=== PATIENT | male | born 1985 | race Two or more races ===

== ENCOUNTER 2024-02-23 17:03 | Emergency (ER) | payer SELFPAY ==
[~2024-02-23] VITALS: Ht 182.9 cm; Wt 144.7 kg
[2024-02-23 21:26] VITALS: BP 138/82; PULSE 106; RESP 16; TEMP 98.5; O2SAT 94
[2024-02-23] MEDS ORDERED: PRED20TA2 PO (21:59)
[2024-02-23] MEDS ORDERED: AMOX875T4 PO (21:59)
[2024-02-23] MEDS ORDERED: IBUP-1456 PO (21:59)
[2024-02-23] MEDS: cefTRIAXone SOD 1,000 MG VL IM ONE (22:01)
[2024-02-23] MEDS: KETOROLAC TROMETH 60MG/2ML VIAL IM ONE (22:01)
[2024-02-23] MEDS: TETANUS-DIPTH-ACEL PERTUSSIS 0.5ML SYR Tdap IM ONE (22:17)
== END 2024-02-23 21:59 | disposition home or self-care (01) ==
LOC: ER 17:03
DX: S00.461A Insect bite (nonvenomous) of right ear, initial encounter (principal); H66.91 Otitis media, unspecified, right ear; F17.210 Nicotine dependence, cigarettes, uncomplicated; Z90.49 Acquired absence of other specified parts of digestive tract; Z79.2 Long term (current) use of antibiotics; Z79.1 Long term (current) use of non-steroidal anti-inflammatories (NSAID); Z79.899 Other long term (current) drug therapy; W57.XXXA Bitten or stung by nonvenomous insect and other nonvenomous arthropods, initial encounter; Y93.89 Activity, other specified; Y92.89 Other specified places as the place of occurrence of the external cause; Y99.8 Other external cause status
CPT/HCPCS: 90471; 90715; 96372; 99284; J0696; J1885